=== PATIENT | male | born 1965 ===

== ENCOUNTER 2018-10-05 08:48 | Outpatient (CLI) | payer OTHER | END 2018-10-05 08:49 | disposition home or self-care (01) | LOC: LAB 08:48 | PROVIDERS: ATTEND Internal Medicine | DX: E11.9 Type 2 diabetes mellitus without complications (principal) | CPT/HCPCS: 36415; 83036 ==

== ENCOUNTER 2019-02-01 09:50 | Outpatient (CLI) | payer OTHER ==
[2019-02-01 11:02] LABS: Chol/HDL Ratio 8.35 %
[2019-02-06 12:22] LABS: Vitamin D, 25-OH, D2 11 ng/mL
== END 2019-02-01 09:51 | disposition home or self-care (01) ==
LOC: LAB 09:50
PROVIDERS: ATTEND Internal Medicine
DX: E78.5 Hyperlipidemia, unspecified (principal); E11.9 Type 2 diabetes mellitus without complications; E55.9 Vitamin D deficiency, unspecified
CPT/HCPCS: 36415; 80061; 82306; 83036

== ENCOUNTER 2019-05-24 08:51 | Outpatient (CLI) | payer OTHER ==
[2019-05-24 13:29] LABS: Chol/HDL Ratio 5.48 %; HDL Cholesterol 31 mg/dL (40-59); LDL Cholesterol,Direct TNR mg/dL (50-130)
[2019-05-28 13:38] LABS: Vitamin D, 25-OH, D2 8 ng/mL
== END 2019-05-24 08:52 | disposition home or self-care (01) ==
LOC: LAB 08:51
PROVIDERS: ATTEND Internal Medicine
DX: E55.9 Vitamin D deficiency, unspecified (principal); E11.9 Type 2 diabetes mellitus without complications; E78.5 Hyperlipidemia, unspecified
CPT/HCPCS: 36415; 80061; 82306; 83036

== ENCOUNTER 2021-11-08 10:19 | Outpatient (CLI) | payer OTHER ==
[2021-11-08 12:24] LABS: Basophils % (Auto) 0.2 % (0.0-1.8); Eosinophils # (Auto) 0.1 K/mm3 (0.0-0.4); Eosinophils % (Auto) 2.2 % (0.0-4.3); Hematocrit 42.3 % (35.5-45.6); Lymphocytes # (Auto) 1.9 K/mm3 (1.2-5.4); Lymphocytes % (Auto) 32.1 % (13.4-35.0); Mean Corpuscular HGB Conc 36 % (32-34); Mean Corpuscular Volume 89 fl (84-94); Monocytes # (Auto) 0.5 K/mm3 (0.0-0.8); Monocytes % (Auto) 8.8 % (0.0-7.3); Platelet Count 225 K/mm3 (140-440); Red Blood Count 4.77 M/mm3 (3.65-5.03)
[2021-11-08 12:39] LABS: Alanine Aminotransferase 22 units/L (7-56); Albumin 5.1 g/dL (3.9-5); BUN/Creatinine Ratio 21; Blood Urea Nitrogen 19 mg/dL (9-20); Calcium 10.3 mg/dL (8.4-10.2); Chol/HDL Ratio 4.62 %; HDL Cholesterol 37 mg/dL (40-59); Hemolysis Index 20; LDL Cholesterol,Direct 110 mg/dL (50-130)
[2021-11-08 14:33] LABS: Creatinine,Urine 150.8 mg/dL (0.1-20.0)
[2021-11-08 14:42] LABS: Microalbumin/Creatinine Ratio 7.9 ug/mg
== END 2021-11-08 10:20 | disposition home or self-care (01) ==
LOC: LABHHL 10:19
PROVIDERS: ATTEND Internal Medicine
DX: Z00.00 Encounter for general adult medical examination without abnormal findings (principal); E11.9 Type 2 diabetes mellitus without complications; E55.9 Vitamin D deficiency, unspecified; E78.5 Hyperlipidemia, unspecified; E66.09 Other obesity due to excess calories; R53.83 Other fatigue
CPT/HCPCS: 36415; 80053; 80061; 82043; 82306; 83036; 84443; 85025